=== PATIENT | female | born 1980 | race Caucasian/White ===

== ENCOUNTER 2018-04-22 11:17 | Emergency (ER) | payer OTHER ==
[~2018-04-22] VITALS: Wt 75.0 kg
[~2018-04-22 11:17] MED LIST: PRENAT PO
[2018-04-22] MEDS ORDERED: KETOROLAC 60 MG INJ IM STA (12:28)
--- NOTE | 2018-04-22 13:29 | ERD ---
ER Documentation Chief Complaint Chief Complaint pt here with c/o bodyaches, cough, fever HPI 38-year-old female presents with 2-day history of fevers, headaches, body aches, and cough. Currently taking Tylenol. Denies chest pain, wheezing, dyspnea, hemoptysis, photophobia, meningeal signs. Denies past medical history. Denies allergies. Denies medications. Denies surgeries. Denies alcohol, tobacco, drug use. Up to date on vaccines. ROS All systems reviewed and are negative except as per history of present illness. Medications Home Meds Active Scripts Promethazine HCl/Codeine (Prometh-Codein 6.25-10 mg/5 ml) 5 Ml Syrup, 5 ML PO Q4 for cough, #4 OZ Prov:BAO BROWN 04/22/18 Ibuprofen* (Motrin*) 600 Mg Tab, 600 MG PO Q6H PRN for PAIN AND OR ELEVATED TEMP, #30 TAB Prov:BAO BROWN 04/22/18 Reported Medications Multivit/Min/Fol Ac/Iron/Pren* ( S*) 1 Tab Tab, 1 TAB PO DAILY, TAB 02/06/16 Allergies Allergies: Coded Allergies: No Known Allergy (Unverified , 04/22/18) PMhx/Soc Medical and Surgical Hx: pt denies Medical Hx, pt denies Surgical Hx Hx Alcohol Use: No Hx Substance Use: No Hx Tobacco Use: No Smoking Status: Never smoker FmHx Family History: No diabetes, No coronary disease, No other Physical Exam Vitals Vital Signs Date Temp Pulse Resp B/P (MAP) Pulse Ox O2 O2 Flow FiO2 Time Delivery Rate 04/22/18 100.9 82 16 119/82 Room Air 14:11 (94) 04/22/18 102.6 13:57 04/22/18 103.1 122 18 118/76 98 Room Air 12:30 (90) 04/22/18 102.5 116 17 135/78 98 11:25 (97) Physical Exam Const: No acute distress Head: Atraumatic Eyes: Normal Conjunctiva ENT: Normal External Ears, Nose and Mouth. Neck: Full range of motion. No meningismus. Resp: Clear to auscultation bilaterally Cardio: Regular rate and rhythm, no murmurs Abd: Soft, non tender, non distended. Normal bowel sounds Skin: No petechiae or rashes Back: No midline or flank tenderness Ext: No cyanosis, or edema Neur: Awake and alert Psych: Normal Mood and Affect Results 24 hrs Laboratory Tests Test 04/22/18 12:41 POC Beta HCG, Qualitative NEGATIVE Current Medications Medications Dose Sig/Kari Start Time Status Last (Trade) Ordered Route PRN Stop Time Admin Dose Reason Admin Ketorolac 60 mg ONCE STAT 04/22/18 DC 04/22/18 Tromethamine IM 12:28 04/22/18 12:46 (Toradol) 12:31 1,000 mg ONCE STAT 04/22/18 DC 04/22/18 Acetaminophen PO 13:51 04/22/18 13:57 (Tylenol 13:52 Tab) Procedures/MDM 38-year-old female presents with 2-day history of fevers, headaches, body aches, and cough. Currently taking Tylenol. Denies chest pain, wheezing, dyspnea, hemoptysis, photophobia, meningeal signs. Patient given Toradol in the ER. I nfluenza test was negative. I have low suspicion for strep throat based on history and exam findings, as well as patient not meeting centor criteria for rapid strep testing. I have low suspicion for bacterial sinusitis, pneumonia, tuberculosis, meningitis, pneumothorax, PE, aspirated foreign body, respiratory distress, acute heart failure or other life threatening etiology based on patient history and exam findings. Most likely etiology is viral URI and no further tests are necessary. Patient given rx for promethazine and ibuprofen. Patient advised to rest and stay well hydrated. Patient discharged with strict ER precautions. Patient advised to follow up with PMD. All questions answered at discharge. Departure Diagnosis: Primary Impression: Upper respiratory infection URI type: unspecified viral URI Qualified Codes: J06.9 - Acute upper respiratory infection, unspecified Condition: Stable BAO BROWN Apr 22, 2018 13:29
[2018-04-22] MEDS ORDERED: IBUP-1542 PO (13:30)
[2018-04-22] MEDS ORDERED: PROM5SYR2 PO (13:30)
[2018-04-22] MEDS ORDERED: ACETAMINOPHEN 500 MG TAB PO STA (13:51)
[2018-04-22 14:11] VITALS: BP 119/82; PULSE 82; RESP 16
== END 2018-04-22 14:15 | disposition home or self-care (01) ==
LOC: FTE 11:17
DX: J06.9 Acute upper respiratory infection, unspecified (principal)
CPT/HCPCS: 81025; 87400; J1885; Z7610; 96372

== ENCOUNTER 2018-08-20 14:52 | Emergency (ER) | payer OTHER ==
[~2018-08-20] VITALS: Ht 157.5 cm; Wt 75.0 kg
[~2018-08-20 14:52] MED LIST changes: +IBUP-1542 PO; +PROM5SYR2 PO
[2018-08-20 14:58] VITALS: BP 126/82; PULSE 82; RESP 18; Ht 157.5 cm; Wt 75.0 kg
[2018-08-20] MEDS ORDERED: LORAZEPAM 0.5 MG TAB PO ONE (15:30)
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
== END 2018-08-20 15:49 | disposition home or self-care (01) ==
LOC: FTE 14:52
DX: R20.2 Paresthesia of skin (principal); R20.0 Anesthesia of skin; R06.02 Shortness of breath
CPT/HCPCS: 93005; Z7502; Z7610